=== PATIENT | female | born 1990 | race African-American/Black ===

== ENCOUNTER 2016-11-02 09:35 | Emergency (ER) | payer OTHER ==
[~2016-11-02] VITALS: Ht 172.7 cm; Wt 107.2 kg
[~2016-11-02 09:35] MED LIST: Ambien PO; FLONASE16 G1 NS; KEFLEX500 MG PO; KENALOG,ARISTOC80 GM TP; MEDROL DOSEPAK4 MG PO; MONISTAT 3200 MG VG; SUDAFED30 MG PO
[2016-11-02] MEDS ORDERED: ZOFRAN ODT4 MG PO (10:55)
[2016-11-02] MEDS ORDERED: FLEXERIL10 MG PO (11:02)
[2016-11-02] MEDS ORDERED: MOTRIN800 MG PO (11:02)
[2016-11-02 11:33] VITALS: BP 106/64
== END 2016-11-02 11:35 | disposition home or self-care (01) ==
LOC: EME 09:35
DX: S66.911A Strain of unspecified muscle, fascia and tendon at wrist and hand level, right hand, initial encounter (principal); R52 Pain, unspecified; V47.0XXA Car driver injured in collision with fixed or stationary object in nontraffic accident, initial encounter; Y92.810 Car as the place of occurrence of the external cause; Z88.1 Allergy status to other antibiotic agents
CPT/HCPCS: 73130; 99281; 99283

== ENCOUNTER 2018-03-17 18:30 | Emergency (ER) | payer BC ==
[~2018-03-17] VITALS: Ht 172.7 cm; Wt 109.3 kg
[~2018-03-17 18:30] MED LIST changes: +FLEXERIL10 MG PO; +MOTRIN800 MG PO; +ZOFRAN ODT4 MG PO
[2018-03-17 18:32] VITALS: BP 125/97
[2018-03-17 20:04] LABS: BASOPHIL (%) 0.3 % (0-1); EOSINOPHIL (%) 2.4 % (0-5); EOSINOPHIL COUNT 0.2 K/uL (0-0.3); HEMATOCRIT 36.2 % (36.0-46.0); HEMOGLOBIN 11.6 G/DL (11.9-15.5); IMMATURE GRANULOCYTE (%) 0.1 % (0.0-0.7); LYMPHOCYTE (%) 30.6 % (15-42); LYMPHOCYTE COUNT 2.2 K/uL (1.0-2.8); MCV 87.4 FL (83-99); MONOCYTE (%) 8.3 % (3-12); MONOCYTE COUNT 0.6 K/uL (0-0.8); NEUTROPHIL (%) 58.3 % (45-76); NEUTROPHIL COUNT 4.2 K/uL (1.8-6.4); PLATELET COUNT 297 K/uL (156-360); RBC DIS.WIDTH-CV 14.9 % (11.8-14.6); RBC DIS.WIDTH-SD 47.8 % (39-53); RED BLOOD COUNT 4.14 M/uL (3.80-5.20); WHITE BLOOD COUNT 7.2 K/uL (4.1-10.2)
[2018-03-17 20:19] LABS: ALBUMIN 3.8 g/dL (3.2-4.8)
[2018-03-17 20:20] LABS: CHLORIDE 107 mEq/L (99-109); POTASSIUM 3.9 mEq/L (3.7-5.4); SODIUM 140 mEq/L (136-147)
[2018-03-17 20:22] LABS: GLUCOSE 102 mg/dL (70-99); TOTAL PROTEIN 7.8 g/dL (6.4-8.3)
[2018-03-17 20:24] LABS: TOTAL BILIRUBIN 0.2 mg/dL (0.0-1.0)
[2018-03-17 20:25] LABS: ALKALINE PHOSPHATASE 87 IU/L (3-129)
[2018-03-17 20:26] LABS: CREATININE 0.8 mg/dL (0.6-1.3); GFR ESTIMATE (CALCULATED) > 59 mL/min/
[2018-03-17 20:27] LABS: AST (GOT) 22 IU/L (2-34); UREA NITROGEN (BUN) 18 mg/dL (9-23)
[2018-03-17 20:28] LABS: ALT (GPT) 19 IU/L (3-49)
== END 2018-03-17 21:09 | disposition home or self-care (01) ==
LOC: EME 18:30
PROVIDERS: Emergency Medicine
DX: L51.9 Erythema multiforme, unspecified (principal); Z88.0 Allergy status to penicillin
CPT/HCPCS: 80053; 85025